=== PATIENT | female | born 1985 | race American Indian/Alaskan Native ===

== ENCOUNTER 2019-04-17 11:00 | Outpatient (CLI) | payer MEDICAID | END 2019-04-17 11:01 | disposition home or self-care (01) | LOC: SLR 11:00 | PROVIDERS: ATTEND Otolaryngology | DX: G47.33 Obstructive sleep apnea (adult) (pediatric) (principal); I10 Essential (primary) hypertension | CPT/HCPCS: 95811 ==

== ENCOUNTER 2019-06-15 10:21 | Emergency (ER) | payer MEDICAID ==
[2019-06-15 10:29] VITALS: BP 145/87
[2019-06-15] MEDS ORDERED: METOCLOPRAMIDE 10 MG/2 ML INJ IV ONE (11:36)
[2019-06-15] MEDS ORDERED: KETOROLAC 30 MG/1 ML INJ IV ONE (11:36)
[2019-06-15] MEDS ORDERED: diphenhydrAMINE 50 MG/ML VIAL IV ONE (11:36)
--- NOTE | 2019-06-15 11:38 | Emergency Department Report ---
ED Headache HPI - General Chief Complaint: Headache Stated Complaint: HEADACHE/DIZZY/N Source: patient Exam Limitations: no limitations - History of Present Illness Initial Comments: 33-year-old obese female presents to the emergency room for headache x1 week. Patient states that the headache is intermittent and sharp and is located in the frontal and behind the eyes. Patient does admit to nausea and dizziness. Patient states that she has been taking ibuprofen and last Tylenol was 3 AM. Patient denies any nasal congestion rhinorrhea or watery eyes. Patient denies any past medical history no known drug allergies and no meds on a daily basis. Patient's last menstrual period was 06/01/2019. Patient does have a primary care doctor Dr. Storm. Timing/Duration: 1 week Quality: moderate Head Injury Location: frontal Recent Head Trauma: no recent headache/trauma Modifying Factors: improves with: exposure to light Associated Symptoms: nausea/vomiting (No vomiting). denies: fatigue, fever/chills, nasal congestion, nasal drainage, vision changes, weakness Allergies/Adverse Reactions: Allergies No Known Allergies Allergy (Verified 06/15/19 10:22) Home Medications: Ambulatory Orders Vitamin 1 tab PO DAILY 01/18/15 Butalb/Acetamin/Caff 50-325-40 [Fioricet 50-325-40] 1 tab PO Q6HR PRN #12 tab 06/15/19 ED Review of Systems ROS: Stated complaint: HEADACHE/DIZZY/N Other details as noted in HPI ED Past Medical Hx - Past Medical History Previous Medical History?: No Hx Hypertension: Yes Hx Congestive Heart Failure: No Hx Diabetes: Yes Hx Deep Vein Thrombosis: No Hx Renal Disease: No Hx Sickle Cell Disease: No Hx Seizures: No Hx Asthma: No Hx COPD: No Hx HIV: No - Surgical History Past Surgical History?: Yes Additional Surgical History: TONSIL - Social History Smoking Status: Never Smoker Substance Use Type: None - Medications Home Medications: Home Medications Medication Instructions Recorded Confirmed Last Taken Type Vitamin 1 tab PO DAILY 01/18/15 01/18/15 01/13/15 History Butalb/Acetamin/Caff 50-325-40 1 tab PO Q6HR PRN #12 tab 06/15/19 Unknown Rx [Fioricet 50-325-40] ED Physical Exam - General Limitations: No Limitations General appearance: alert, in no apparent distress - Head Head exam: Present: atraumatic, normocephalic - Eye Eye exam: Present: normal appearance, PERRL. Absent: periorbital swelling, periorbital tenderness - ENT ENT exam: Present: mucous membranes moist - Neck Neck exam: Present: normal inspection, full ROM - Respiratory Respiratory exam: Present: normal lung sounds bilaterally. Absent: respiratory distress - Cardiovascular Cardiovascular Exam: Present: regular rate, normal rhythm. Absent: systolic murmur, diastolic murmur, rubs, gallop - Extremities Exam Extremities exam: Present: normal inspection, full ROM - Back Exam Back exam: Present: full ROM - Neurological Exam Neurological exam: Present: alert, oriented X3 - Expanded Neurological Exam Expanded Patient oriented to: Present: person, place, time Cranial nerves: EOM's Intact: Normal, Gag Reflex: Normal, Tongue Deviation: Normal, Nystagmus: Normal, Facial Sensation: Normal, Facial Palsy with Forehead Movement: Normal, Facial Palsy without Forehead Movement: Normal Cerebellar function: Finger to Nose: Normal, Heel to [place]: Normal, Romberg: No rmal Upper motor neuron: Jc Neglect: Normal, Pronator Drift: Normal, Sensory Extinction: Normal Sensory exam: Upper Extremity Light Touch: Normal, Upper Extremity Pin Prick: Normal, Upper Extremity Temperature: Normal, UE 2 Point Discrimination: Normal, Lower Extremity Light Touch: Normal, Lower Extremity Pin Prick: Normal, Lower Extremity Temperature: Normal, LE 2 Point Discrimination: Normal Motor strength exam: RUE: 5, LUE: 5, RLE: 5, LLE: 5 Best Eye Response ([place]): (4) open spontaneously Best Motor Response ([place]): (6) obeys commands Best Verbal Response ([place]): (5) oriented Elle Total: 15 - Psychiatric Psychiatric exam: Present: normal affect, normal mood - Skin Skin exam: Present: warm, dry, intact, normal color. Absent: rash ED Course Vital Signs 06/15/19 10:26 Temperature 99.0 F Pulse Rate 86 Respiratory 20 Rate Blood Pressure 145/87 O2 Sat by Pulse 97 Oximetry ED Medical Decision Making - Medical Decision Making 33-year-old obese female presents to the emergency room for headache x1 week. Patient states that the headache is intermittent and sharp and is located in the frontal and behind the eyes. Patient does admit to nausea and dizziness. Patient states that she has been taking ibuprofen and last Tylenol was 3 AM. Patient denies any nasal congestion rhinorrhea or watery eyes. Patient denies any past medical history no known drug allergies and no meds on a daily basis. Patient's last menstrual period was 06/01/2019. Patient does have a primary care doctor Dr. Storm. IV insertion, Benadryl 25 mg IV, Toradol 15 mg IV and Reglan 10 mg IV. Patient is noted to be severely obese at a BMI of 75.9. Will refer patient to Dr. Kumar bariatric surgery. Critical care attestation.: If time is entered above; I have spent that time in minutes in the direct care of this critically ill patient, excluding procedure time. ED Disposition Clinical Impression: Headache, Severely overweight Disposition: DC- TO HOME OR SELFCARE Is pt being admited?: No Does the pt Need Aspirin: No Condition: Stable Instructions: Weight Management (ED), Acute Headache (ED), Obesity (ED) Additional Instructions: Follow-up with your primary care provider. Take Fioricet as needed for headache. Also recommend for you to follow-up with Dr. Kumar as she is a bariatric provider. Prescriptions: Butalb/Acetamin/Caff 50-325-40 [Fioricet 50-325-40] 1 tab PO Q6HR PRN #12 tab PRN Reason: Headache Referrals: PRIMARY CARE, [Primary Care Provider] - 3-5 Days CESIA KUMAR MD [Staff Physician] - 3-5 Days Forms: Work/School Release Form(ED)
== END 2019-06-15 14:30 | disposition home or self-care (01) ==
LOC: ED 10:21
DX: R51 Headache (principal); E66.01 Morbid (severe) obesity due to excess calories; Z68.45 Body mass index [BMI] 70 or greater, adult; I10 Essential (primary) hypertension; E11.9 Type 2 diabetes mellitus without complications
CPT/HCPCS: 96374; 96375; 99282; J1200; J1885; J2765

== ENCOUNTER 2019-07-31 11:34 | Outpatient (CLI) | payer MEDICAID ==
[2019-07-31 12:04] LABS: Basophils # (Auto) 0.1 K/mm3 (0.0-0.1); Basophils % (Auto) 1.8 % (0.0-1.8); Eosinophils # (Auto) 0.1 K/mm3 (0.0-0.4); Eosinophils % (Auto) 2.5 % (0.0-4.3); Lymphocytes # (Auto) 1.9 K/mm3 (1.2-5.4); Lymphocytes % (Auto) 44.4 % (13.4-35.0); Monocytes # (Auto) 0.3 K/mm3 (0.0-0.8); Monocytes % (Auto) 7.8 % (0.0-7.3)
[2019-07-31 12:16] LABS: Alanine Aminotransferase 30 units/L (7-56); Albumin 3.8 g/dL (3.9-5); BUN/Creatinine Ratio 13; Blood Urea Nitrogen 13 mg/dL (7-17); Calcium 9.3 mg/dL (8.4-10.2); Chol/HDL Ratio 3.33 %; HDL Cholesterol 42 mg/dL (40-59); Hemolysis Index 15; LDL Cholesterol,Direct 99 mg/dL (50-130)
[2019-07-31 12:18] LABS: Hematocrit 41.6 % (30.3-42.9); Hemoglobin 13.4 gm/dl (10.1-14.3); Mean Corpuscular HGB Conc 32 % (30-34); Mean Corpuscular Volume 83 fl (79-97); Platelet Count 283 K/mm3 (140-440); Red Blood Count 5.03 M/mm3 (3.65-5.03); Red Cell Distribution Width 14.2 % (13.2-15.2)
== END 2019-07-31 11:35 | disposition home or self-care (01) ==
LOC: LAB 11:34
PROVIDERS: ATTEND Surgery
DX: Z01.812 Encounter for preprocedural laboratory examination (principal); E11.9 Type 2 diabetes mellitus without complications; E66.01 Morbid (severe) obesity due to excess calories
CPT/HCPCS: 36415; 80053; 80061; 82306; 83036; 84443; 85025